=== PATIENT | male | born 1995 | race African-American/Black ===

== ENCOUNTER 2016-07-20 15:05 | Emergency (ER) | payer BC ==
[~2016-07-20] VITALS: Ht 182.9 cm; Wt 81.2 kg
[2016-07-20 15:11] VITALS: TEMP 36.9; Ht 182.9 cm; Wt 81.2 kg
--- NOTE | 2016-07-20 15:25 | EMERGENCY ROOM VISIT NOTE ---
ED Visit Note First contact with patient: 15:17 CHIEF COMPLAINT: Finger infection HISTORY OF PRESENT ILLNESS: This 21-year-old male patient presents to the emergency department ambulatory complaining of pain and swelling of the right second finger. Doesn't remember any injury to the area before it got swollen and tender. The patient has not had a fever. There has been no discharge. The patient has tried nothing. The patient's tetanus shot is up-to-date. REVIEW OF SYSTEMS: A 6 system review of systems was completed with positives and pertinent negatives listed in the HPI. ALLERGIES: No known drug allergies MEDICATIONS: None PMH: None. SOCIAL HISTORY: The patient does not smoke. He lives locally. PHYSICAL EXAM: Vital Signs: Reviewed Nurse's notes, temperature 36.9C orally, vital signs stable. GENERAL: This is a 21-year-old male, in no acute distress, nontoxic in appearance, well-developed, well-nourished. SKIN: There is erythema , swelling, and tenderness of the nail fold around the right second finger. There is mild fluctuance but no drainage. There is no pus under the nail. There is no lymphangitic streaking up the hand. Capillary refill less than two seconds. MUSCULOSKELETAL: The patient has full range of motion and strength of the finger. Peripheral pulses 2+. ED COURSE: I examined the patient. The area of fluctuance of the right second finger was cleaned with Betadine. Ethyl chloride was used to anesthetize the area. An 11 blade was then used to make a 0.5 cm incision to drain the paronychia. A moderate amount of strength and pus was expressed and a culture was obtained. More was expressed with pressure until all of the pus was relieved. The area was thoroughly cleaned with sterile saline. The area was then dressed with bacitracin and a bandage. The patient tolerated the procedure well. The patient was discharged home in stable condition. DIAGNOSIS: Paronychia of the right second finger DISCHARGE INSTRUCTIONS: Soak the finger in hot water 4 times a day for 20 minutes each, take Keflex 500 mg four times a day for 7 days. Return if the area seems to be getting worse. Current/Historical Medications Scheduled Cephalexin Monohydrate (Keflex), 500 MG PO QID Allergies Coded Allergies: No Known Allergies (Unverified , 07/20/16) Vital Signs Date Time Temp Pulse Resp B/P Pulse Ox O2 Delivery O2 Flow Rate FiO2 07/20/16 15:51 65 18 137/83 98 07/20/16 15:11 36.9 81 18 122/76 98 Room Air Departure Information Impression Primary Impression: Paronychia Dispostion Home / Self-Care Condition GOOD Prescriptions Cephalexin Monohydrate (Keflex) 500 Mg Cap 500 MG PO QID for 7 Days, #28 CAP Prov: Emperatriz Ibrahim PA-C 07/20/16 Patient Instructions ED Infec Fingernail, [facility] Additional Instructions Soak the finger in hot water 4 times a day for 20 minutes each, take Keflex 500 mg four times a day for 7 days. Return if the area seems to be getting worse. Problem Qualifiers Primary Impression: Paronychia Laterality: right Qualified Codes: L03.011 - Cellulitis of right finger
[2016-07-20] MEDS ORDERED: CEPH500C PO (15:43)
[2016-07-20 15:51] VITALS: BP 137/83; PULSE 65; O2SAT 98
== END 2016-07-20 15:53 | disposition home or self-care (01) ==
LOC: C.EDB 15:07 → C.EDD 15:53
DX: L03.011 Cellulitis of right finger (principal)

== ENCOUNTER 2017-02-15 11:32 | Emergency (ER) | payer BC ==
[~2017-02-15] VITALS: Ht 182.9 cm; Wt 83.1 kg
[2017-02-15 11:37] VITALS: BP 109/55; PULSE 78; TEMP 36.9; O2SAT 100; Ht 182.9 cm; Wt 83.1 kg
--- NOTE | 2017-02-15 11:54 | EMERGENCY ROOM VISIT NOTE ---
ED Visit Note First contact with patient: 11:48 CHIEF COMPLAINT: Shoulder pain HISTORY OF PRESENT ILLNESS: This 21-year-old male patient presents to the emergency department complaining of pain in the right shoulder that started yesterday while he was lifting weights. He states he felt a popping in his shoulder and thought it popped out of joint and then went back in on its own. He has never had any previous injuries to this shoulder. There is full range of motion of the shoulder joint. The pain is moderate, constant and increases with motion of the hand and arm. The patient states the pain is throbbing/ aching and 7/10. The patient has taken no medications for relief of the pain. No previous significant previous shoulder disease or injury. No numbness or tingling. No neck and no back pain. No chest pain or shortness of breath. No abdominal pain or nausea/vomiting. No cough. REVIEW OF SYSTEMS: A 6 system review of systems was performed with positives and pertinent negatives in the HPI. ALLERGIES: Reviewed in chart MEDICATIONS: No medications PMH: No significant past medical history SOCIAL HISTORY: [employer] student, lives with roommates. PHYSICAL EXAM: Vital Signs: Reviewed nurse's notes, vital signs stable. GENERAL : Pleasant and cooperative, in no acute distress, well-developed, well- nourished. MUSCULOSKELETAL: There is no deformity in the contour of the right shoulder and there are no harrison deformities noted. There is no sulcus sign. There is tenderness over the anterior and lateral shoulder. The patient's range of motion is normal. Supraspinatus strength 5/5. There is no clavicle tenderness. No tenderness of the humerus, elbow, wrist, or hand. Fruit Tester strength 5 /5. Radial pulse 2+. NECK: No tenderness to palpation over the cervical spine. Full range of motion without pain. HEART: Regular rate and rhythm without murmurs gallops or rubs. LUNGS: Clear to auscultation bilaterally without wheezes, rales or rhonchi. No accessory muscle use. No retractions. NEURO: The patient is alert and oriented to person, place, and time. Normal sensation to light and sharp touch. Capillary refill less than 2 seconds. EMERGENCY DEPARTMENT COURSE: I examined the patient. An X-ray of the right shoulder was reviewed by myself and radiologist and shows no acute bony abnormality. Patient was provided with a sling for comfort, he reported improved pain after Motrin. He was instructed to follow up with his PCP or orthopedics for continued pain, he verbalized understanding. Patient was discharged home in stable condition ambulatory. Current/Historical Medications No Active Prescriptions or Reported Meds Allergies Coded Allergies: No Known Allergies (Unverified , 02/15/17) Vital Signs Date Time Temp Pulse Resp B/P (MAP) Pulse Ox O2 Delivery O2 Flow Rate FiO2 02/15/17 11:37 36.9 78 20 109/55 100 Room Air Medications Administered Medications (Trade) Dose Ordered Sig/Francisco Route Start Time Stop Time Status Last Admin Dose Admin Ibuprofen (Motrin Tab) 600 mg NOW STAT PO 02/15/17 12:05 02/15/17 12:08 DC 02/15/17 12:15 600 MG Departure Information Impression Primary Impression: Right shoulder strain Dispostion Home / Self-Care Condition GOOD Prescriptions No Active Prescriptions or Reported Meds Referrals No Doctor, Assigned (PCP) Duncan Currie M.D. Patient Instructions ED Sprain Shoulder, [facility] Additional Instructions Rest the arm in a sling until the pain subsides. Apply ice to the shoulder intermittently and frequently over the next 2 days. Ibuprofen 600 mg and Tylenol 1000 mg every 8 hours if needed for pain. See your family doctor or an orthopedic surgeon if you don't seem to be improving in the next 4 - 5 days. Problem Qualifiers Primary Impression: Right shoulder strain Encounter type: initial encounter Qualified Codes: S46.911A - Strain of unspecified muscle, fascia and tendon at shoulder and upper arm level, right arm , initial encounter
[2017-02-15] MEDS ORDERED: IBUPROFEN 600 MG TAB PO STA (12:05)
--- NOTE | 2017-02-15 12:41 | DIAGNOSTIC IMAGING REPORT ---
RIGHT SHOULDER MIN 2 VIEWS ROUTINE HISTORY: 21 years-old Male shoulder pain, eval fx, dislocation Right acute right sided shoulder pain status post dislocation. COMPARISON: None available. TECHNIQUE: 3 views of the right shoulder. FINDINGS: No acute fracture, dislocation, significant degenerative changes or intra-articular loose body. No Hill-Sachs deformity or bony Bankart lesion identified. Imaged lung are clear. IMPRESSION: No acute fracture or dislocation. The above report was generated using voice recognition software. It may contain grammatical, syntax or spelling errors. Electronically signed by: Naresh Mayo M.D. 02/15/2017 12:39 PM Dictated Date/Time: 02/15/2017 12:38 PM
== END 2017-02-15 13:46 | disposition home or self-care (01) ==
LOC: C.EDB 11:33 → C.EDD 13:46
DX: S46.911A Strain of unspecified muscle, fascia and tendon at shoulder and upper arm level, right arm, initial encounter (principal); X50.1XXA Overexertion from prolonged static or awkward postures, initial encounter; Y92.89 Other specified places as the place of occurrence of the external cause; Y93.B3 Activity, free weights